=== PATIENT | female | born 1990 | race American Indian/Alaskan Native ===

== ENCOUNTER 2017-10-09 16:38 | Inpatient (IN) | payer SELFPAY ==
[2017-10-09] MEDS ORDERED: PITOCin/NS 20 UNIT/1000ML DRIP 20,000 MILLIUNITS/1,000 ML BAG IV ONE (17:04)
[2017-10-09] MEDS ORDERED: XYLOCAINE 2% INFILTRATI ONE (17:24)
[2017-10-09] MEDS ORDERED: MINERAL OIL PO PRN (17:24)
--- NOTE | 2017-10-09 17:31 | History and Physical Report ---
History of Present Illness Date of examination: 10/09/17 (pt arrived via EMS ready to deliver) Date of admission: 10/09/17 16:38 Chief complaint: ctx all day called 911 for transport to the hospital History of present illness: LMP 01-19-17 EDC 10-21-17 GA 38 weeks No PNC Denies any medical or surgical hx Denies ETOH,Drugs, Smoking Past History - Obstetrical History Expected Date of Delivery: 10/21/17 Actual Gestation: 38 Week(s) 2 Day(s) : 1 Number of Living Children: 0 - Vital Signs Vital signs: Vital Signs Pulse BP 86 105/62 10/09/17 17:24 10/09/17 17:24 Temp Pulse Resp BP Pulse Ox 86 105/62 10/09/17 17:24 10/09/17 17:24 - Physical Exam Breasts: Positive: deferred Cardiovascular: Regular rate, Normal S1, Normal S2 Lungs: Positive: Normal air movement Abdomen: Positive: normal appearance, soft, normal bowel sounds. Negative: distention, tenderness Genitourinary (Female): Positive: normal external genitalia Vulva: both: normal Vagina: Positive: normal moisture. Negative: discharge Cervix: Negative: lesion, discharge Uterus: Positive: normal size, normal contour Adnexa: both: normal Anus/Rectum: Positive: normal perianal skin, heme negative. Negative: rectal mass, hemorrhoids Extremities: Deep Tendon Reflex Grade: Normal +2 - Obstetrical FHR: category 1 Uterine Contraction Monitor Mode: External Cervical Dilatation: 10 (SROM on arrival) Cervical Effacement Percentage: 100 station: 0 Results All other labs normal. Assessment and Plan 27yo with no PNC @ 38 weeks by LMP EDC of 10-21-17 Pt delivered immediately after arrival Note to follow All labs ordered In EMR
--- NOTE | 2017-10-09 17:38 | Procedure Note ---
OB Delivery Note - Delivery Date of Delivery: 10/09/17 Cluster Bore Operator: HOWARD XIONG (pt complete on my arrival) Estimated blood loss: 300cc - Vaginal Delivery presentation: vertex Delivery position: OA Intrapartum events: no care Delivery induction: none Delivery monitor: external FHT Route of delivery: Delivery placenta: spontaneous Delivery cord: 3 umbilical vessels Episiotomy: none Delivery laceration: 2nd degree Delivery repair: vicryl Anesthesia: local Delivery comments: of live born female over intact perineum Pt declined to hold baby Cord clamped and cut Baby to warmer. Cord blood obtained Placenta and membrane del complete and intact, 3 vessel cord. Pit IVFs 2nd degree laceration repaired with 2-0 vicryl over Lidocaine in usual fashion 8/9, EBL 300, Wgt 5-8 Mom and baby remain LDR stable - A at 1 minute: 8 at 5 minutes: 9 Gender: Female (wgt 5-8)
[2017-10-09] MEDS ORDERED: PITOCin/NS 20 UNIT/1000ML DRIP 20 UNITS/1,000 ML BAG IV SCH (18:00)
[2017-10-09] MEDS ORDERED: LACTATED RINGERS 1,000 ML IV SCH (18:00)
[2017-10-09] MEDS ORDERED: SUBLIMAZE ONE (18:22)
[2017-10-09] MEDS ORDERED: PHENERGAN PO PRN (18:25)
[2017-10-09] MEDS ORDERED: DULCOLAX PR PRN (18:25)
[2017-10-09] MEDS ORDERED: NORCO 5/325 PO PRN (18:25)
[2017-10-09] MEDS ORDERED: BENADRYL PO PRN (18:25)
[2017-10-09] MEDS ORDERED: PERCOCET 5/325 PO PRN (18:25)
[2017-10-09] MEDS ORDERED: MILK OF MAGNESIA PO PRN (18:25)
[2017-10-09] MEDS ORDERED: LANSINOH TP PRN (18:25)
[2017-10-09] MEDS ORDERED: TUCKS PAD TP PRN (18:25)
[2017-10-09] MEDS ORDERED: ZOFRAN IV PRN (18:25)
[2017-10-09] MEDS ORDERED: TYLENOL PO PRN (18:25)
[2017-10-09] MEDS ORDERED: SUBLIMAZE IV ONE (18:30)
[2017-10-09 18:48] LABS: Basophils % (Auto) 0.4 % (0.0-1.8); Hemoglobin 7.9 gm/dl (10.1-14.3); Lymphocytes # (Auto) 0.7 K/mm3 (1.2-5.4); Lymphocytes % (Auto) 7.5 % (13.4-35.0); Mean Corpuscular HGB Conc 30 % (30-34); Monocytes # (Auto) 0.3 K/mm3 (0.0-0.8); Monocytes % (Auto) 2.9 % (0.0-7.3); Platelet Count 310 K/mm3 (140-440); Red Blood Count 4.45 M/mm3 (3.65-5.03)
[2017-10-09 18:55] LABS: Mean Corpuscular Hemoglobin 18 pg (28-32); Mean Corpuscular Volume 58 fl (79-97); Red Cell Distribution Width 23.3 % (13.2-15.2)
[2017-10-09 18:57] LABS: Bilirubin,Urine NEG (Negative); Blood,Urine MOD (Negative); Color,Urine Yellow (Yellow); Mucus,Urine FEW /HPF; Protein,Urine <15 mg/dL mg/dL (Negative)
[2017-10-09] MEDS ORDERED: SODIUM CHLORIDE FLUSH SYRINGE 10 ML IV NR (19:00)
[2017-10-09 19:08] LABS: Amphetamine Screen,Urine PRESUMPTIVE NEGATIVE; Benzodiazepines Screen,Urine PRESUMPTIVE NEGATIVE; Cannabinoid Screen,Urine PRESUMPTIVE NEGATIVE; Cocaine Screen,Urine PRESUMPTIVE NEGATIVE; Methadone Screen,Urine PRESUMPTIVE NEGATIVE; Opiate Screen,Urine PRESUMPTIVE NEGATIVE
[2017-10-09 19:20] LABS: Hepatitis C Virus Antibody Non-Reactive (NonReactive); Rubella IgG Antibody Immune (Immune)
[2017-10-09] MEDS: COLACE PO SCH (22:19)
[2017-10-10] MEDS: MOTRIN PO SCH ×4 (02:45→23:23)
[2017-10-10 05:14] LABS: Hematocrit 21.9 % (30.3-42.9); Hemoglobin 6.6 gm/dl (10.1-14.3)
[2017-10-10] MEDS ORDERED: BOOSTRIX IM ONE (06:00)
[2017-10-10] MEDS ORDERED: M-M-R II VACCINE SUB-Q ONE (06:00)
--- NOTE | 2017-10-10 08:51 | Discharge Summary ---
Providers - Providers Date of Admission: 10/09/17 16:38 Date of discharge: 10/10/17 (desires) Attending physician: JAN PERES 10/09/17 22:44 Consult to Case Management [CONS] Routine Services Needed at Discharge: Vacuum Closing Machine Operator Notified:: Call to Phone number called:: [phone] Was contact made?: No Time called:: 22:45 Comment:: Busy tone. Additional Physician Instructions: Baby for adoption. Primary care physician: JAN PERES Hospitalization Reason for admission: Labor Condition: Good Procedures: uncomplicated vaginal delivery Hospital course: uncomplicated vaginal delivery and course Disposition: - TO HOME OR SELFCARE - Discharge Diagnoses (1) Spontaneous vaginal delivery Status: Acute Core Measure Documentation - Palliative Care Palliative Care/ Comfort Measures: Not Applicable - Core Measures Any of the following diagnoses?: none Exam - Constitutional Vitals: Temp Pulse Resp BP Pulse Ox 99.4 F 84 16 112/82 100 10/10/17 00:40 10/10/17 00:40 10/10/17 03:45 10/10/17 00:40 10/10/17 00:40 General appearance: Present: no acute distress, well-nourished - EENT Eyes: Present: PERRL ENT: hearing intact, clear oral mucosa - Neck Neck: Present: supple, normal ROM - Respiratory Respiratory effort: normal Respiratory: bilateral: CTA - Cardiovascular Heart Sounds: Present: S1 & S2. Absent: rub, click - Extremities Extremities: pulses symmetrical, No edema Peripheral Pulses: within normal limits - Abdominal General gastrointestinal: Present: soft, non-tender, non-distended, normal bowel sounds Female genitourinary: Present: normal - Integumentary Integumentary: Present: clear, warm, dry - Musculoskeletal Musculoskeletal: gait normal, strength equal bilaterally - Psychiatric Psychiatric: appropriate mood/affect, intact judgment & insight - Neurologic Neurologic: CNII-XII intact, moves all extremities - Additional findings Additional findings: Fundus firm, lochia scant, preexisting anemia asymptomatic - H&H 6.6/21.9 ( will rx fe for d/c home), VSSAF. Plan Activity: no restrictions Diet: regular Follow up with: JAN PERES MD [Primary Care Provider] - 6 Weeks (Please call to schedule a follow up in 6 weeks. Call for any questions or concerns.)
[2017-10-10] MEDS: COLACE PO SCH ×2 (12:08→23:23)
[2017-10-10] MEDS: FEOSOL PO SCH ×2 (12:08→23:23)
[2017-10-10] MEDS: PRENATAL VITAMIN PO SCH (12:09)
[2017-10-11] MEDS: MOTRIN PO SCH ×3 (06:06→18:00)
[2017-10-11] MEDS: FEOSOL PO SCH (11:00)
[2017-10-11] MEDS: COLACE PO SCH (11:00)
[2017-10-11] MEDS: PRENATAL VITAMIN PO SCH (11:00)
[2017-10-11] MEDS ORDERED: Fluarix Quad 2017-2018(36 MOS+ IM ONE (12:00)
[2017-10-11] MEDS ORDERED: LACTATED RINGERS 1,000 ML IV SCH (15:00)
[2017-10-11 21:58] VITALS: BP 116/76
== END 2017-10-11 21:40 | disposition home or self-care (01) | DRG 775 ==
LOC: LD 16:38 → OB 20:25
PROVIDERS: ADMIT Obstetrics & Gynecology; ATTEND Obstetrics & Gynecology
PROC: 10E0XZZ Delivery of Products of Conception, External Approach (ICD-10-PCS; principal; 2017-10-09)
PROC: 0KQM0ZZ Repair Perineum Muscle, Open Approach (ICD-10-PCS; 2017-10-09)
PROC: 3E0234Z Introduction of Serum, Toxoid and Vaccine into Muscle, Percutaneous Approach (ICD-10-PCS; 2017-10-11)
DX: O70.1 Second degree perineal laceration during delivery (principal); Z37.0 Single live birth; Z3A.38 38 weeks gestation of pregnancy; Z23 Encounter for immunization
CPT/HCPCS: 36415; 80307; 81001; 85014; 85018; 85025; 86592; 86706; 86762; 86803; 86850; 86900; 86901; 87806; 88307; 90686; J2590; J3010